=== PATIENT | female | born 1965 | race Caucasian/White ===

== ENCOUNTER 2017-03-04 08:12 | Emergency (ER) | payer OTHER ==
[2017-03-04 08:28] VITALS: BP 150/80
--- NOTE | 2017-03-04 10:18 | UC ---
Complaint Female HPI - HPI Summary HPI Summary: 51 yo female c/o freq / urg / dysuria since this am. No fever / chills. No rash. - History Of Current Complaint Chief Complaint: UCGU Stated Complaint: UTI Time Seen by Provider: 03/04/17 09:57 Hx Obtained From: Patient Hx Last Menstrual Period: Hyst. - Allergies/Home Medications Allergies/Adverse Reactions: Allergies Allergy/AdvReac Type Severity Reaction Status Date / Time Lisinopril Allergy Intermediate Coughing Verified 03/04/17 08:27 Home Medications: Home Medications Pantoprazole TAB (NF) [Protonix TAB (NF)] 1 cap PO DAILY 03/04/17 [History Confirmed 03/04/17] PMH/Surg Hx/FS Hx/Imm Hx Previously Healthy: Yes Other History Of: Negative For: HIV, Hepatitis B, Hepatitis C, Anticoagulant Therapy - Surgical History Surgical History: Yes Surgery Procedure, Year, and Place: Hysterectomy. tonsillectomy - Family History Known Family History: Positive: Cardiac Disease, Hypertension, Diabetes, Respiratory Disease - Social History Occupation: Employed Full-time Alcohol Use: Occasionally Substance Use Type: None Smoking Status (MU): Current Every Day Smoker Type: Cigarettes Amount Used/How Often: 1 ppd Have You Smoked in the Last Year: Yes - Immunization History Most Recent Influenza Vaccination: 02/04 Review of Systems Constitutional: Negative Skin: Negative Eyes: Negative ENT: Negative Respiratory: Negative Cardiovascular: Negative Gastrointestinal: Negative Genitourinary: Dysuria, Frequency, Urgency Motor: Negative Neurovascular: Negative Musculoskeletal: Negative Neurological: Negative Psychological: Negative Is Patient Immunocompromised?: No All Other Systems Reviewed And Are Negative: Yes Physical Exam Triage Information Reviewed: Yes Appearance: Well-Nourished Vital Signs: Initial Vital Signs Temp 98.7 F 03/04/17 08:22 Pulse 86 03/04/17 08:22 Resp 18 03/04/17 08:22 BP 150/80 03/04/17 08:22 Pulse Ox 98 03/04/17 08:22 Vital Signs Reviewed: Yes Eye Exam: Normal - grossly normal ENT Exam: Normal Neck exam: Normal Respiratory: Positive: Chest non-tender, Lungs clear, Normal breath sounds, No respiratory distress Cardiovascular Exam: Normal Cardiovascular: Positive: RRR Abdominal Exam: Other - subj tender midpelvis. Abd nondistended. No cvat Musculoskeletal Exam: Normal Neurological Exam: Normal - grossly normal. nonfocal. Psychological Exam: Normal - conversing easily and appropriately. Skin Exam: Normal Complaint Female Dx - Course Course Of Treatment: Reviewed urine dip with pt. Jones tx / coa. Questions answered as posed to the best of my ability. - Differential Dx/Diagnosis Provider Diagnoses: UTI. hematuria Discharge - Discharge Plan Condition: Stable Disposition: HOME Prescriptions: Phenazopyridine 200 mg (NF) [Pyridium 200 MG tab *] 200 mg PO TID PRN #12 tab PRN Reason: Pain Sulfamethox/Trimethoprim DS* [Bactrim DS 800/160 TAB*] 1 tab PO BID #14 tab Patient Education Materials: Urinary Tract Infection in Women (ED), Hematuria ( ED) Forms: *Work Release Referrals: Carolina Sumner MD [Primary Care Provider] - Additional Instructions: Follow up with Dr. Sumner in the next 2-3 weeks for recheck, ej to make sure that blood in urine resolves. Urine culture has been sent. Please seek medical attention for worse or new problems in the meantime.
--- NOTE | 2017-03-06 20:04 | UC ---
Progress - Progress Note Progress Note: E. coli UTI resistant to bactrim. Macrodantin rx went to pharmacy. Should stop bactrim ad switch to macrodantin.
== END 2017-03-04 10:25 | disposition home or self-care (01) ==
LOC: UCEAST 08:12
DX: N39.0 Urinary tract infection, site not specified (principal); R31.9 Hematuria, unspecified; Z72.0 Tobacco use
CPT/HCPCS: 81003; 87077; 87086; 87186; 99212; G0463

== ENCOUNTER 2017-03-10 08:35 | Emergency (ER) | payer OTHER ==
--- NOTE | 2017-03-10 09:07 | UC ---
Lower Extremity/Ankle HPI - HPI Summary HPI Summary: 51 yo female with right great toe pain x days red hurts to bear wt no recent injury during the summer she hit that toe with a string garrett she has appt with parliamentary archivist in DEC - History of Current Complaint Chief Complaint: UCLowerExtremity Stated Complaint: TOE PAIN Time Seen by Provider: 03/10/17 08:55 Hx Obtained From: Patient Hx Last Menstrual Period: Hyst. Onset/Duration: Gradual Onset, Lasting Days Severity Initially: Moderate Severity Currently: Moderate Pain Intensity: 4 Pain Scale Used: 0-10 Numeric Aggravating Factor(s): Standing, Ambulation Alleviating Factor(s): Rest Able to Bear Weight: Yes - Allergies/Home Medications Allergies/Adverse Reactions: Allergies Allergy/AdvReac Type Severity Reaction Status Date / Time Lisinopril Allergy Intermediate Coughing Verified 03/10/17 08:46 Home Medications: Home Medications Nitrofurantoin Monohyd Macro [Macrobid] 100 mg PO BID 03/10/17 [History Confirmed 03/10/17] PMH/Surg Hx/FS Hx/Imm Hx Previously Healthy: Yes Cardiovascular History: Hypertension Other History Of: Negative For: HIV, Hepatitis B, Hepatitis C, Anticoagulant Therapy - Surgical History Surgical History: Yes Surgery Procedure, Year, and Place: Hysterectomy. tonsillectomy - Family History Known Family History: Positive: Cardiac Disease, Hypertension, Diabetes, Respiratory Disease - Social History Alcohol Use: Occasionally Substance Use Type: None Smoking Status (MU): Current Every Day Smoker Type: Cigarettes Amount Used/How Often: 1 ppd Have You Smoked in the Last Year: Yes - Immunization History Most Recent Influenza Vaccination: 02/04 Review of Systems Constitutional: Negative Skin: Negative Eyes: Negative ENT: Negative Respiratory: Negative Cardiovascular: Negative Gastrointestinal: Negative Genitourinary: Negative Motor: Negative Neurovascular: Negative Musculoskeletal: Negative Neurological: Negative Psychological: Negative Is Patient Immunocompromised?: No All Other Systems Reviewed And Are Negative: Yes Physical Exam Triage Information Reviewed: Yes Appearance: Well-Appearing, No Pain Distress, Well-Nourished Vital Signs: Initial Vital Signs Temp 97.2 F 03/10/17 08:39 Pulse 88 03/10/17 08:39 Resp 14 03/10/17 08:39 Pulse Ox 98 03/10/17 08:39 Vital Signs Reviewed: Yes Eyes: Positive: Conjunctiva Clear ENT: Positive: Hearing grossly normal. Negative: Nasal congestion, Nasal drainage, Trismus, Muffled voice, Hoarse voice Neck: Positive: Supple Respiratory: Positive: Lungs clear, Normal breath sounds, No respiratory distress Cardiovascular: Positive: RRR, No Murmur Musculoskeletal: Positive: Other: - see image Psychological Exam: Normal Skin Exam: Normal Lower Extremity Course/Dx - Differential Dx/Diagnosis Provider Diagnoses: cellulitis right great toe. ingrown toe nails. ? onchomycosis Discharge - Discharge Plan Condition: Stable Disposition: HOME Prescriptions: Cephalexin CAP* [Keflex CAP*] 500 mg PO QID #28 cap Patient Education Materials: Cellulitis (ED) Referrals: Carolina Sumner MD [Primary Care Provider] - Additional Instructions: warm soapy soaks 2x day see parliamentary archivist in Mar as planned recheck in 2-3 days if not better post op shoe Images Feet (Multiple View): 1 - tip red and swollen/no subungual pus/all her nails are ingrown/? onchomycosis
[2017-03-10 09:18] VITALS: BP 120/89
== END 2017-03-10 09:11 | disposition home or self-care (01) ==
LOC: UCEAST 08:35
DX: L03.031 Cellulitis of right toe (principal); L60.0 Ingrowing nail; Z72.0 Tobacco use; Z72.89 Other problems related to lifestyle
CPT/HCPCS: 99213; G0463

== ENCOUNTER 2017-06-24 09:57 | Emergency (ER) | payer OTHER ==
[2017-06-24 10:20] VITALS: BP 162/87
--- NOTE | 2017-06-24 11:18 | UC ---
Respiratory Complaint HPI - HPI Summary HPI Summary: Pt presents with body aches, fatigue, and dry cough for 2 days. She tells me that a lot of coworkers have been ill with the flu. She has been taking ibuprofen and mucinex and sleeping a lot. She denies fever, chills, SOB, chest pain, abdominal pain, n/v/d/c. She is still smoking daily - History of Current Complaint Chief Complaint: UCRespiratory Stated Complaint: COUGH,BODYACHES Time Seen by Provider: 06/24/17 10:58 Hx Obtained From: Patient Hx Last Menstrual Period: Hyst. Onset/Duration: Sudden Onset Severity Initially: Severe Severity Currently: Severe Pain Intensity: 9 Pain Scale Used: 0-10 Numeric Character: Cough: Nonproductive - Allergies/Home Medications Allergies/Adverse Reactions: Allergies Allergy/AdvReac Type Severity Reaction Status Date / Time lisinopril Allergy Coughing Verified 06/24/17 10:20 Home Medications: Home Medications Diphenhydram/PE/Dm/Acetamin/GG [Mucinex Fast-Max Day Time] 1 mis PO DAILY PRN [History Confirmed 06/24/17] PMH/Surg Hx/FS Hx/Imm Hx Previously Healthy: Yes Cardiovascular History: Hypertension Psychological History: Anxiety Other History Of: Negative For: HIV, Hepatitis B, Hepatitis C, Anticoagulant Therapy - Surgical History Surgical History: Yes Surgery Procedure, Year, and Place: Hysterectomy. tonsillectomy - Family History Known Family History: Positive: Cardiac Disease, Hypertension, Diabetes, Respiratory Disease - Social History Occupation: Employed Full-time Lives: With Family Alcohol Use: Occasionally Substance Use Type: None Smoking Status (MU): Heavy Every Day Tobacco Smoker Type: Cigarettes Amount Used/How Often: 1 ppd Have You Smoked in the Last Year: Yes - Immunization History Most Recent Influenza Vaccination: 02/04 Review of Systems Constitutional: Fatigue, Other - Body aches Skin: Negative Eyes: Negative ENT: Negative Respiratory: Cough Cardiovascular: Negative Gastrointestinal: Negative Neurological: Negative Psychological: Negative All Other Systems Reviewed And Are Negative: Yes Physical Exam - Summary Physical Exam Summary: GENERAL: Mildly ill appearing. NAD. WDWN. No pain distress. SKIN: No rashes, sores, ulcers, masses, lesions. No clubbing or cyanosis. HEENT: Head: AT/NC Eyes: EOM intact. Conjunctiva clear without inflammation or discharge. Ears: Hearing grossly normal. TMs intact, no bulging, erythema, or edema. Nose: Nasal mucosa pink and moist. NTTP maxillary and frontal sinus. Throat: Posterior oropharynx without exudates, erythema, or tonsillar enlargement. Uvula midline. NECK: Supple. Nontender. No lymphadenopathy. CHEST: CTAB. No r/r/w. No accessory muscle use. Breathing comfortably and in no distress. CV: RRR. Without m/r/g. Pulses intact. Brisk cap refill. NEURO: Alert. CN II-XII grossly intact. PSYCH: Age appropriate behavior. Triage Information Reviewed: Yes Vital Signs: Initial Vital Signs Temp 97.8 F 06/24/17 10:16 Pulse 91 06/24/17 10:16 Resp 16 06/24/17 10:16 BP 162/87 06/24/17 10:16 Pulse Ox 95 06/24/17 10:16 UC Diagnostic Evaluation - Laboratory O2 Sat by Pulse Oximetry: 95 Respiratory Course/Dx - Course Course Of Treatment: POC flu negative. Suspect viral illness. Advised to continue rest, fluids, and ibuprofen prn discomfort/fever. - Differential Dx/Diagnosis Provider Diagnoses: Viral syndrome Discharge - Discharge Plan Condition: Stable Disposition: HOME Patient Education Materials: Viral Syndrome (ED) Forms: *Work Release Referrals: Carolina Sumner MD [Primary Care Provider] - Additional Instructions: If you develop a fever, shortness of breath, chest pain, new or worsening symptoms - please call your PCP or go to the ED. Your blood pressure was high at todays visit. Please see your primary provider within 4 weeks for recheck and re-evaluation. 1) Rest, drink plenty of fluids, and take ibuprofen as needed for fever or discomfort.
== END 2017-06-24 11:30 | disposition home or self-care (01) ==
LOC: UCEAST 09:57
DX: B34.9 Viral infection, unspecified (principal); F17.210 Nicotine dependence, cigarettes, uncomplicated; I10 Essential (primary) hypertension; F41.9 Anxiety disorder, unspecified
CPT/HCPCS: 87502; 99211; G0463

== ENCOUNTER 2017-08-20 08:50 | Emergency (ER) | payer OTHER ==
[2017-08-20 09:03] VITALS: BP 129/57
--- NOTE | 2017-08-20 09:24 | UC ---
Complaint Female HPI - HPI Summary HPI Summary: 3 DAYS OF DYSURIA, URINARY FREQUENCY AND URGENCY. NO FEVER, BACK PAIN OR NAUSEA. - History Of Current Complaint Stated Complaint: URINARY ISSUE Time Seen by Provider: 08/20/17 08:58 Hx Obtained From: Patient Hx Last Menstrual Period: Hyst. Onset/Duration: Gradual Onset, Lasting Days, Still Present Severity Initially: Moderate Severity Currently: Moderate Pain Intensity: 0 Pain Scale Used: 0-10 Numeric Character: Burning Aggravating Factor(s): Urination Alleviating Factor(s): Nothing Associated Signs And Symptoms: Negative: Fever, Back Pain, Vaginal Discharge, Nausea - Allergies/Home Medications Allergies/Adverse Reactions: Allergies Allergy/AdvReac Type Severity Reaction Status Date / Time lisinopril Allergy Coughing Verified 08/20/17 09:04 PMH/Surg Hx/FS Hx/Imm Hx Cardiovascular History: Hypertension GI/ History: Gastroesophageal Reflux Psychological History: Anxiety Other History Of: Negative For: HIV, Hepatitis B, Hepatitis C, Anticoagulant Therapy - Surgical History Surgical History: Yes Surgery Procedure, Year, and Place: Hysterectomy. tonsillectomy - Family History Known Family History: Positive: Cardiac Disease, Hypertension, Diabetes, Respiratory Disease - Social History Alcohol Use: Occasionally Substance Use Type: None Smoking Status (MU): Heavy Every Day Tobacco Smoker Type: Cigarettes Amount Used/How Often: 1 ppd Have You Smoked in the Last Year: Yes - Immunization History Most Recent Influenza Vaccination: 02/04 Most Recent Tetanus Shot: UNK Review of Systems Constitutional: Negative Respiratory: Negative Cardiovascular: Negative Gastrointestinal: Negative Genitourinary: Dysuria, Frequency, Urgency All Other Systems Reviewed And Are Negative: Yes Physical Exam Triage Information Reviewed: Yes Appearance: Well-Appearing, No Pain Distress, Well-Nourished Vital Signs: Initial Vital Signs Temp 98 F 08/20/17 08:58 Pulse 76 08/20/17 08:58 Resp 18 08/20/17 08:58 BP 129/57 08/20/17 08:58 Pulse Ox 97 08/20/17 08:58 Vital Signs Reviewed: Yes Eyes: Positive: Conjunctiva Clear ENT: Positive: Hearing grossly normal Neck: Positive: Supple Respiratory: Positive: No respiratory distress, No accessory muscle use Cardiovascular: Positive: Pulses Normal Abdomen Description: Positive: Nontender, Soft. Negative: CVA Tenderness (R), CVA Tenderness (L), Distended, Guarding Musculoskeletal: Positive: No Edema Neurological: Positive: Alert Psychological: Positive: Age Appropriate Behavior Skin: Negative: rashes Diagnostics - Laboratory Diagnostic Studies Completed/Ordered: URINE DIP SP. GR. 1.020, 2+ BLOOD, 1+ PROTEIN, 1+ LEUKS Complaint Female Dx - Differential Dx/Diagnosis Provider Diagnoses: UTI Discharge - Sign-Out/Discharge Documenting (check all that apply): Discharge/Admit/Transfer - Discharge Plan Condition: Stable Disposition: HOME Prescriptions: Ciprofloxacin TAB* [Cipro 500 MG TAB*] 500 mg PO BID #10 tab Phenazopyridine TAB* [Pyridium TAB*] 200 mg PO TID #6 tab Patient Education Materials: Urinary Tract Infection in Women (ED) Referrals: Carolina Sumner MD [Primary Care Provider] - If Needed Additional Instructions: TAKE THE CIPRO TWICE DAILY FOR 5 DAYS. URINE SPECIMEN SENT FOR CULTURE. WE WILL CALL YOU IF YOUR TREATMENT NEEDS TO BE MODIFIED. STAY WELL HYDRATED. CONSIDER FOLLOWING UP WITH A UROLOGIST TO DISCUSS YOUR RECENT FREQUENT UTI TO EVALUATE FOR POSSIBLE UNDERLYING DISORDER. - Billing Disposition and Condition Condition: STABLE Disposition: HOME
== END 2017-08-20 09:37 | disposition home or self-care (01) ==
LOC: UCEAST 08:50
DX: N39.0 Urinary tract infection, site not specified (principal); I10 Essential (primary) hypertension; K21.9 Gastro-esophageal reflux disease without esophagitis; F41.9 Anxiety disorder, unspecified; Z88.8 Allergy status to other drugs, medicaments and biological substances; F17.210 Nicotine dependence, cigarettes, uncomplicated
CPT/HCPCS: 81003; 87086; 99212; G0463

== ENCOUNTER 2017-09-03 07:03 | Emergency (ER) | payer SELFPAY ==
[2017-09-03 07:18] VITALS: BP 156/74
--- NOTE | 2017-09-03 11:17 | UC ---
Heaven Marcus Gabriel, scribed for Yusuf Silva MD on 09/03/17 at 0725 . Complaint Female HPI - HPI Summary HPI Summary: This patient is a 52 year old F presenting to [facility] [place] with a chief complaint of possible UTI. The patient rates the pain 3/10 in severity. Patient reports dysuria, increased frequency, and back pain. Patient denies fever and chills. This is her 5th UTIs in the last year and 2 weeks ago she was seen and given cipro which resolved the symptoms. - History Of Current Complaint Chief Complaint: UCGU Stated Complaint: URINARY COMPLAINT Time Seen by Provider: 09/03/17 07:08 Hx Obtained From: Patient Hx Last Menstrual Period: none Onset/Duration: Still Present Timing: Constant Severity Initially: Mild Severity Currently: Mild Pain Intensity: 3 Pain Scale Used: 0-10 Numeric Associated Signs And Symptoms: Negative: Fever - Allergies/Home Medications Allergies/Adverse Reactions: Allergies Allergy/AdvReac Type Severity Reaction Status Date / Time lisinopril Allergy Coughing Verified 08/20/17 09:04 PMH/Surg Hx/FS Hx/Imm Hx Cardiovascular History: Hypertension GI/ History: Gastroesophageal Reflux Psychological History: Anxiety Other History Of: Negative For: HIV, Hepatitis B, Hepatitis C, Anticoagulant Therapy - Surgical History Surgical History: Yes Surgery Procedure, Year, and Place: Hysterectomy. tonsillectomy - Family History Known Family History: Positive: Cardiac Disease, Hypertension, Diabetes, Respiratory Disease - Social History Alcohol Use: Occasionally Substance Use Type: None Smoking Status (MU): Heavy Every Day Tobacco Smoker Type: Cigarettes Amount Used/How Often: 1 ppd Have You Smoked in the Last Year: Yes - Immunization History Most Recent Influenza Vaccination: 02/04 Most Recent Tetanus Shot: UNK Review of Systems Genitourinary: Dysuria, Frequency Musculoskeletal: Other: - back pain All Other Systems Reviewed And Are Negative: Yes Physical Exam - Summary Physical Exam Summary: VITAL SIGNS: Reviewed. GENERAL: Patient is a well-developed and nourished female who is lying comfortable in the stretcher. Patient is not in any acute respiratory distress. HEAD AND FACE: Normocephalic EYES: PERRLA, EOMI x 2. EARS: Hearing grossly intact. MOUTH: Oropharynx within normal limits. NECK: Supple, trachea is midline, no adenopathy, no JVD, no carotid bruit. CHEST: Symmetric, no tenderness at palpation LUNGS: Clear to auscultation bilaterally. No wheezing or crackles. CVS: Regular rate and rhythm, S1 and S2 present, no murmurs or gallops appreciated. ABDOMEN: Soft, non-tender. Bowel sounds are normal. No abdominal abnormal pulsations. EXTREMITIES: Full ROM in all major joints, no edema, no cyanosis or clubbing. NEURO: Alert and oriented x 3. No acute neurological deficits. Speech is normal and follows commands. SKIN: Dry and warm Triage Information Reviewed: Yes Vital Signs: Initial Vital Signs Temp 97.8 F 09/03/17 07:14 Pulse 78 09/03/17 07:14 Resp 16 09/03/17 07:14 BP 156/74 09/03/17 07:14 Pulse Ox 98 09/03/17 07:14 Vital Signs Reviewed: Yes Complaint Female Dx - Course Course Of Treatment: The UA was positive for nitrates and UTI. However there is trace glucose and protein so the patient was recommended to follow up with her PCP to r/o diabetes and other possible reasons for her frequent UTIs. The patient understands and agrees. .The patient was found to have increased BP in UC. The patient will follow up with PCP for better control of BP. - Differential Dx/Diagnosis Provider Diagnoses: UTI and HTN Discharge - Sign-Out/Discharge Documenting (check all that apply): Discharge/Admit/Transfer - Discharge Plan Condition: Stable Disposition: HOME Prescriptions: Sulfamethox/Trimethoprim DS* [Bactrim DS 800/160 TAB*] 1 tab PO BID #20 tab Patient Education Materials: Urinary Tract Infection in Women (ED) Referrals: Carolina Sumner MD [Primary Care Provider] - Additional Instructions: Take medications as instructed Increase your fluid intake Return to the UC if symptoms worsen The documentation as recorded by the Heaven casper Gabriel accurately reflects the service I personally performed and the decisions made by , Yusuf Silva MD.
== END 2017-09-03 07:46 | disposition home or self-care (01) ==
LOC: UCEAST 07:03
DX: N39.0 Urinary tract infection, site not specified (principal); Z87.440 Personal history of urinary (tract) infections; I10 Essential (primary) hypertension; K21.9 Gastro-esophageal reflux disease without esophagitis; F41.9 Anxiety disorder, unspecified; Z88.8 Allergy status to other drugs, medicaments and biological substances; F17.210 Nicotine dependence, cigarettes, uncomplicated
CPT/HCPCS: 81003; 87086; 99212; G0463

== ENCOUNTER 2021-06-05 07:35 | Observation (INO) ==
[~2021-06-05 07:35] MED LIST: Buffered Lidocaine 1% SYRIN 1 ml INTRADERM ONE; Famotidine IV 10 MG/ML 2 ml VIAL (20 mg) IV ONE; Lactated Ringers 1000 ml BAG 1,000 ML IV SCH
[2021-06-05] MEDS ORDERED: Famotidine IV 10 MG/ML 2 ml VIAL (20 mg) ONE (07:47)
[2021-06-05] MEDS ORDERED: ceFAZolin 1 GM ADVAN 1 GM ADDV.VIAL IVPB ONE ×2 (07:50→08:22)
[2021-06-05] MEDS ORDERED: ROPIVACAINE 5 MG/ML 30 ML BTL (0.5%) ONE (08:38)
[2021-06-05] MEDS ORDERED: fentaNYL 100 mcg/2 ml 50 MCG/ML VIAL IV PRN (08:55)
[2021-06-05] MEDS ORDERED: DiMENhydriNATE IV 50 mg/ml 1 ml VIAL IV PUSH PRN (08:55)
[2021-06-05] MEDS ORDERED: Naloxone 0.4 mg VIAL 0.4 mg/ml 1 ml VIAL IV PRN (08:55)
[2021-06-05] MEDS ORDERED: fentaNYL 100 mcg/2 ml 50 MCG/ML VIAL ONE ×2 (09:09→09:23)
[2021-06-05] MEDS ORDERED: Phenylephrine IV 10 MG/ML 1 ml VIAL ONE (09:10)
[2021-06-05] MEDS ORDERED: Propofol 0 MG/0 ML BTL ONE (09:10)
[2021-06-05] MEDS ORDERED: Lidocaine 2% PF 5 ML VIAL ONE (09:10)
[2021-06-05] MEDS ORDERED: Ropivacaine 5 MG/ML 20 ML VIAL 0.5% (100 MG) ONE (09:13)
[2021-06-05] MEDS ORDERED: Midazolam 2 mg/2 ml VIAL 1 mg/ml 2 ml VIAL (2 mg) ONE (09:23)
[2021-06-05] MEDS ORDERED: Propofol 10 MG/ML 20 ML BTL ONE (09:29)
[2021-06-05] MEDS ORDERED: diPHENhydraMINE 25 mg TAB PO PRN (09:42)
[2021-06-05] MEDS ORDERED: Lactulose 30 ml UDC PO PRN (09:42)
[2021-06-05] MEDS ORDERED: Ondansetron ODT 4 mg TAB 4 MG TAB PO PRN (09:42)
[2021-06-05] MEDS ORDERED: diPHENhydraMINE IV 50 MG/ML 1 ml VIAL (BENADRYL) IV PRN (09:42)
[2021-06-05] MEDS ORDERED: Magnesium Hydroxide LIQ 30 ML UDC PO PRN (09:42)
[2021-06-05] MEDS ORDERED: Ondansetron 4 mg VIAL 2 MG/ML 2 ml VIAL IV PRN (09:42)
[2021-06-05] MEDS ORDERED: HYDROmorphone 0.5 MG/0.5 ML SYRINGE ONE (09:52)
[2021-06-05] MEDS ORDERED: EPHEDrine (Pressors) 50 MG/ML VIAL ONE (10:01)
[2021-06-05] MEDS ORDERED: fentaNYL 250 mcg/5 ml 50 MCG/ML 5 ml VIAL (250 MCG) ONE (10:06)
[2021-06-05] MEDS ORDERED: Dexamethasone IV 4 MG/ML VIAL 1 ml VIAL ONE (10:12)
[2021-06-05] MEDS ORDERED: Ondansetron 4 mg VIAL 2 MG/ML 2 ml VIAL ONE (10:12)
[2021-06-05] MEDS ORDERED: Acetaminophen IV 1 GM/100ML 100 ML IV ONE (11:01)
[2021-06-05] MEDS: Lactated Ringers 1000 ml BAG 1,000 ML IV SCH (14:14)
[2021-06-05] MEDS ORDERED: Dextrose 50% Syringe 50 ml 25 GM/50 ML SYRINGE IV PUSH PRN (17:01)
[2021-06-05] MEDS: ceFAZolin 1 GM ADVAN 1 GM in NS 0.9% 50 ML 50 ML IVPB SCH (17:55)
[2021-06-05] MEDS ORDERED: OLMESARTAN HYDROCHLOROTHIAZIDE PO SCH (21:00)
[2021-06-05] MEDS: Magnesium Hydroxide LIQ 30 ML UDC PO SCH (21:04)
[2021-06-06] MEDS: ceFAZolin 1 GM ADVAN 1 GM in NS 0.9% 50 ML 50 ML IVPB SCH ×2 (01:40→11:22)
[2021-06-06] MEDS: Lactated Ringers 1000 ml BAG 1,000 ML IV SCH (03:06)
[2021-06-06 06:18] LABS: Hematocrit 34 % (35-47); Hemoglobin 11.5 g/dL (12.0-16.0); Mean Platelet Volume 7.7 fL (7.4-10.4); Platelet Count 187 10^3/uL (150-450)
[2021-06-06 06:38] LABS: Calcium 8.3 mg/dL (8.6-10.3); eGFR CKD-EPI 50.1 (>60)
[2021-06-06] MEDS: Magnesium Hydroxide LIQ 30 ML UDC PO SCH (08:16)
[2021-06-06] MEDS ORDERED: Vitamin THERAPEUTIC TAB PO SCH (09:00)
[2021-06-06] MEDS ORDERED: NS 0.9% 500 ml BAG 500 ML IV ONE (09:20)
[2021-06-06 11:34] VITALS: BP 108/61
== END 2021-06-06 13:10 | disposition home or self-care (01) ==
LOC: OR 07:35 → SSU 07:35
PROVIDERS: ADMIT Orthopaedic Surgery Adult Reconstructive Orthopaedic Surgery; ATTEND Orthopaedic Surgery Adult Reconstructive Orthopaedic Surgery